=== PATIENT | male | born 1940 | race Caucasian/White ===

== ENCOUNTER 2019-09-08 17:41 | Inpatient (IN) | payer BC ==
[2019-09-08] MEDS ORDERED: Sodium Chloride 0.9% 10 ML Syringe FLUSH PRN (18:07)
[2019-09-08] MEDS ORDERED: Sodium Chloride 0.9% 1,000 ML IV ONE (18:22)
[2019-09-08 18:59] LABS: CHLORIDE,CL 105 mmol/L (98-107); SODIUM,NA 144 mmol/L (136-145)
[2019-09-08 19:06] LABS: ANION GAP 11.4 mmol/L (10-20)
--- NOTE | 2019-09-08 19:10 | CR ---
[id number] RAD/RAD Abd Flat and Upright 2V EXAM: ABDOMEN 4 VIEWS INDICATION: ABDOMINAL PAIN. COMPARISON: None. DISCUSSION: Moderately elevated colonic stool volume. No bowel dilation, free air or pneumatosis is identified. Anterior posterior fusion changes and posterior decompression in the lower lumbar spine. IMPRESSION: 1. Moderately elevated colonic stool volume. Mukesh Roth MD 09/08/19 [id number] Thank you for allowing us to participate in the care of your patient.
--- NOTE | 2019-09-08 19:39 | EDM.PDOC ---
ED HPI GENERAL MEDICAL PROBLEM - General Chief Complaint: General Time Seen by Provider: 09/08/19 17:45 Source of Information: Reports: Patient History Limitations: Reports: No Limitations - History of Present Illness INITIAL COMMENTS - FREE TEXT/NARRATIVE: Pt. presents to ER with complaints of lightheadedness. He was seen in the clinic for the same yesterday, at which time he had a CBC, CMP, and head CT. He states that he talked to a nurse from [facility] who told him to "come to the ER for some IV fluids". Pt. continues to have lightheadedness. No chest pain or shortness of breath. No headache. He states that he feels lightheaded when he goes from sitting to standing. Denies any vertigo/spinning sensation. Pt. denies any nausea, vomiting, or diarrhea. No cough or recent illness. Denies any dysuria or urinary frequency. Onset Date: 09/07/19 Location: Reports: Generalized Associated Symptoms: Reports: Weakness. Denies: Confusion, Chest Pain, Cough, Diaphoresis, Fever/Chills, Malaise, Nausea/Vomiting, Seizure, Shortness of Breath, Syncope - Related Data Allergies Allergy/AdvReac Type Severity Reaction Status Date / Time No Known Drug Allergies Allergy Other Verified 09/08/19 18:12 Home Meds: Home Meds Ascorbic Acid 500 mg PO DAILY 03/06/14 [History] Aspirin [Low Dose Aspirin EC] 81 mg PO DAILY 03/06/14 [History] Celecoxib [CeleBREX] 200 mg PO DAILY 03/06/14 [History] Fish Oil/[place]-3 Fatty Acids [Fish Oil] 1 each PO DAILY 03/06/14 [History] Multivitamin [Multi Vitamin Daily] 1 tab PO DAILY 03/06/14 [History] Rosuvastatin [Crestor] 10 mg PO DAILY 03/06/14 [History] Tiotropium [Spiriva] 18 mcg INH DAILY 03/06/14 [History] lisinopriL [Prinivil] 10 mg PO DAILY 03/06/14 [History] polyethylene glycoL 3350 [MiraLAX] 17 gm PO DAILY 03/06/14 [History] Calcium Carbonate/Vitamin D3 [Calcium Carb 500 MG] 1 each PO BID 09/08/19 [ History] Cholestyramine (With Sugar) [Questran Powder] 4 gm PO BID 09/08/19 [History] Cyclobenzaprine [Flexeril] 10 mg PO BEDTIME 09/08/19 [History] Gabapentin [Neurontin] 600 mg PO BEDTIME 09/08/19 [History] Melatonin 1 mg PO BEDTIME 09/08/19 [History] Tiotropium [place] [Spiriva Respimat] 2 puff IH DAILY 09/08/19 [History] Vitamin B Complex 1 each PO DAILY 09/08/19 [History] hydrALAZINE [Apresoline] 25 mg PO TID 09/08/19 [History] traZODone HCl [Trazodone HCl] 50 mg PO BEDTIME 09/08/19 [History] Past Medical History Cardiovascular History: Reports: High Cholesterol, Hypertension Respiratory History: Reports: COPD Genitourinary History: Reports: Prostate Disorder Other Musculoskeletal History: degenerative disc disease Other Neuro History: insomnia - Past Surgical History Other HEENT Surgeries/Procedures: cochlear implant Social & Family History - Tobacco Use Smoking Status *Q: Current Every Day Smoker Years of Tobacco use: 66 Packs/Tins Daily: 0.5 ED ROS GENERAL - Review of Systems Review Of Systems: See Below Constitutional: Reports: No Symptoms HEENT: Reports: No Symptoms Respiratory: Reports: No Symptoms Cardiovascular: Reports: Lightheadedness. Denies: Chest Pain, Dyspnea on Exertion, Edema Endocrine: Reports: No Symptoms GI/Abdominal: Reports: No Symptoms : Reports: No Symptoms Musculoskeletal: Reports: No Symptoms Skin: Reports: No Symptoms Neurological: Denies: Confusion, Dizziness, Headache, Numbness, Paresthesia Psychiatric: Reports: No Symptoms Hematologic/Lymphatic: Reports: No Symptoms Immunologic: Reports: No Symptoms ED EXAM, GENERAL - Physical Exam Exam: See Below Exam Limited By: No Limitations General Appearance: Alert, WD/WN, No Apparent Distress Eye Exam: Bilateral Eye: EOMI Ears: Normal External Exam, Hearing Grossly Normal Nose: Normal Inspection, Normal Mucosa, No Blood Throat/Mouth: Normal Inspection, Normal Lips, Normal Teeth, Normal Gums, Normal Oropharynx, Normal Voice, No Airway Compromise Head: Atraumatic, Normocephalic Neck: Normal Inspection, Supple, Non-Tender, Full Range of Motion EKG INTERPRETATION Rhythm: NSR [place]: Normal P-Wave: Present QRS: Normal ST-T: Normal QT: Normal Course - Vital Signs Last Recorded V/S: Last Vital Signs Temp 36.4 C 09/08/19 17:41 Pulse 64 09/08/19 17:41 Resp 18 09/08/19 17:41 BP 189/82 H 09/08/19 17:41 Pulse Ox 97 09/08/19 17:41 - Orders/Labs/Meds Orders: Active Orders 24 hr Category Date Time Status Patient Status [ADT] Routine ADT 09/08/19 19:46 Ordered EKG Documentation Completion [RC] STAT Care 09/08/19 18:18 Inactive Chest 1V Frontal [CR] Stat Exams 09/08/19 19:20 Ordered CULTURE BLOOD [BC] Stat Lab 09/08/19 18:57 Results CULTURE BLOOD [BC] Stat Lab 09/08/19 19:03 Received UA W/MICROSCOPIC [URIN] Stat Lab 09/08/19 18:16 Ordered Sodium Chloride 0.9% [Saline Flush] Med 09/08/19 18:07 Active 10 ml FLUSH ASDIRECTED PRN Blood Culture x2 Reflex Set [OM.PC] Stat Oth 09/08/19 18:21 Ordered Peripheral IV Insertion Adult [OM.PC] Routine Oth 09/08/19 18:12 Ordered Medication Orders Sodium Chloride (Saline Flush) 10 ml FLUSH ASDIRECTED PRN PRN Reason: Keep Vein Open Labs: Laboratory Tests 09/08/19 09/08/19 09/08/19 Range/Units 18:30 18:30 18:30 WBC 9.6 (4.0-10.0) x10^3/uL RBC 3.99 L (4.5-6.0) x10^6/uL Hgb 12.2 L D (14.0-18.0) g/dL Hct 36.8 L (40.0-52.0) % MCV 92.2 (78.0-93.0) fL MCH 30.6 (26.0-32.0) pg MCHC 33.2 (32.0-36.0) g/dL RDW Coeff of [place] 12.8 (10.0-15.0) % Plt Count 147 (130-400) x10^3/uL Neut % (Auto) 58.6 (50.0-80.0) % Lymph % (Auto) 26.2 (25.0-50.0) % [place] % (Auto) 9.8 (2.0-11.0) % Eos % (Auto) 5.2 H (0.0-4.0) % Baso % (Auto) 0.2 (0.2-1.2) % PT 10.3 (10.0-12.8) SEC INR 0.9 L (2.0-3.5) Sodium 144 (136-145) mmol/L Potassium 3.4 L (3.5-5.1) mmol/L Chloride 105 (98-107) mmol/L Carbon Dioxide 31 (21-32) mmol/L Anion Gap 11.4 (10-20) mmol/L BUN 40 H (7-18) mg/dL Creatinine 3.3 H* D (0.70-1.30) mg/dL Est Cr Clr Drug Dosing TNP Estimated GFR (MDRD) 18 Glucose 116 H (74-106) mg/dL Lactic Acid (0.4-2.0) mmol/L Calcium 13.4 H* D (8.5-10.1) mg/dL Corrected Calcium 13.88 H* (8.5-10.1) mg/dL Magnesium 2.2 (1.8-2.4) mg/dL Total Bilirubin 0.4 (0.2-1.0) mg/dL AST 15 (15-37) U/L ALT 20 (16-63) U/L Alkaline Phosphatase 96 (46-116) U/L Troponin I < 0.017 (<=0.056) ng/mL Total Protein 7.0 (6.4-8.2) g/dL Albumin 3.4 (3.4-5.0) g/dL Globulin 3.6 Albumin/Globulin Ratio 0.94 // Range/Units 19:03 WBC (4.0-10.0) x10^3/uL RBC (4.5-6.0) x10^6/uL Hgb (14.0-18.0) g/dL Hct (40.0-52.0) % MCV (78.0-93.0) fL MCH (26.0-32.0) pg MCHC (32.0-36.0) g/dL RDW Coeff of [place] (10.0-15.0) % Plt Count (130-400) x10^3/uL Neut % (Auto) (50.0-80.0) % Lymph % (Auto) (25.0-50.0) % [place] % (Auto) (2.0-11.0) % Eos % (Auto) (0.0-4.0) % Baso % (Auto) (0.2-1.2) % PT (10.0-12.8) SEC INR (2.0-3.5) Sodium (136-145) mmol/L Potassium (3.5-5.1) mmol/L Chloride (98-107) mmol/L Carbon Dioxide (21-32) mmol/L Anion Gap (10-20) mmol/L BUN (7-18) mg/dL Creatinine (0.70-1.30) mg/dL Est Cr Clr Drug Dosing Estimated GFR (MDRD) Glucose (74-106) mg/dL Lactic Acid 1.0 (0.4-2.0) mmol/L Calcium (8.5-10.1) mg/dL Corrected Calcium (8.5-10.1) mg/dL Magnesium (1.8-2.4) mg/dL Total Bilirubin (0.2-1.0) mg/dL AST (15-37) U/L ALT (16-63) U/L Alkaline Phosphatase (46-116) U/L Troponin I (<=0.056) ng/mL Total Protein (6.4-8.2) g/dL Albumin (3.4-5.0) g/dL Globulin Albumin/Globulin Ratio Meds: Medications Generic Name Dose Route Start Last Admin Trade Name Freq PRN Reason Stop Dose Admin Sodium Chloride 10 ml 09/08/19 18:07 Saline Flush FLUSH ASDIRECTED PRN Keep Vein Open Discontinued Medications Generic Name Dose Route Start Last Admin Trade Name Freq PRN Reason Stop Dose Admin Sodium Chloride 1,000 mls @ 1,000 mls/hr 09/08/19 18:22 09/08/19 18:51 Normal Saline IV 09/08/19 19:21 1,000 mls/hr .BOLUS ONE Administration Departure - Departure Time of Disposition: 19:50 Disposition: Admitted As Inpatient 65 Clinical Impression: FRAN (acute kidney injury), Dehydration - Discharge Information Referrals: Cade Grider NP [Primary Care Provider] - Forms: ED Department Discharge Sepsis Event Note - Evaluation Sepsis Screening Result: No Definite Risk - Focused Exam Vital Signs: Vital Signs Temp Pulse Resp BP Pulse Ox 09/08/19 17:41 36.4 C 64 18 189/82 H 97 Date Exam was Performed: 09/08/19 Time Exam was Performed: 19:49 - Problem List Review Problem List Initiated/Reviewed/Updated: Yes - My Orders Last 24 Hours: My Active Orders 09/08/19 18:07 Sodium Chloride 0.9% [Saline Flush] 10 ml FLUSH ASDIRECTED PRN 09/08/19 18:12 Peripheral IV Insertion Adult [OM.PC] Routine 09/08/19 18:16 UA W/MICROSCOPIC [URIN] Stat 09/08/19 18:18 EKG Documentation Completion [RC] STAT 09/08/19 18:21 Blood Culture x2 Reflex Set [OM.PC] Stat 09/08/19 18:57 CULTURE BLOOD [BC] Stat 09/08/19 19:03 CULTURE BLOOD [BC] Stat 09/08/19 19:20 Chest 1V Frontal [CR] Stat 09/08/19 19:46 Patient Status [ADT] Routine - Assessment/Plan Last 24 Hours: My Active Orders 09/08/19 18:07 Sodium Chloride 0.9% [Saline Flush] 10 ml FLUSH ASDIRECTED PRN 09/08/19 18:12 Peripheral IV Insertion Adult [OM.PC] Routine 09/08/19 18:16 UA W/MICROSCOPIC [URIN] Stat 09/08/19 18:18 EKG Documentation Completion [RC] STAT 09/08/19 18:21 Blood Culture x2 Reflex Set [OM.PC] Stat 09/08/19 18:57 CULTURE BLOOD [BC] Stat 09/08/19 19:03 CULTURE BLOOD [BC] Stat 09/08/19 19:20 Chest 1V Frontal [CR] Stat 09/08/19 19:46 Patient Status [ADT] Routine Plan: Pt. will be admitted acutely. I spoke with Cade Grider regarding the patient. He is group controller for hospitalist jayesh and will be admitting the patient as well. Continue IV normal saline for now. Awaiting chest x-ray and UA result at this time. All questions were answered.
--- NOTE | 2019-09-08 20:17 | CR ---
[id number] RAD/RAD Chest PA or AP 1V EXAM: FRONTAL CHEST INDICATION: LIGHT HEADEDNESS. COMPARISON: None. DISCUSSION: Linear opacities in the left lung base likely represent subsegmental atelectasis or scarring. 11 mm nodular opacity overlying the peripheral aspect of the left upper lung. No definite acute infiltrates. Borderline heart size without evidence of pulmonary edema. IMPRESSION: 1. Mild left base scarring or atelectasis. 2. Possible small left upper lobe nodule. Chest CT may be useful for further characterization. Mukesh Roth MD 09/08/192016 Thank you for allowing us to participate in the care of your patient.
[2019-09-08] MEDS ORDERED: Acetaminophen 650 MG Tab.ER PO PRN (21:49)
[2019-09-08] MEDS ORDERED: Gabapentin 300 MG Cap PO SCH (22:00)
[2019-09-08] MEDS ORDERED: Sodium Chloride 0.9% 1,000 ML IV SCH (22:00)
[2019-09-08] MEDS ORDERED: traZODone 50 MG Tab PO SCH (22:00)
--- NOTE | 2019-09-08 22:45 | PCM.DCSUM1 ---
Discharge Summary - Hospital Course HPI Initial Comments: Pt. presents to ER with complaints of lightheadedness. He was seen in the clinic for the same yesterday, at which time he had a CBC, CMP, and head CT. He states that he talked to a nurse from [facility] who told him to "come to the ER for some IV fluids". Pt. continues to have lightheadedness. No chest pain or shortness of breath. No headache. He states that he feels lightheaded when he goes from sitting to standing. Denies any vertigo/spinning sensation. Pt. denies any nausea, vomiting, or diarrhea. No cough or recent illness. Denies any dysuria or urinary frequency. Diagnosis: Stroke: No Modified [place] Scale: No Symptoms at All Modified [place] Scale Score: 0 - Discharge Data Discharge Date: 09/08/19 Discharge Disposition: DC/Tfer to Acute Hospital 02 Condition: Good - Referral to Home Health Primary Care Physician: Cade Grider NP - Discharge Diagnosis/Problem(s) (1) Acute renal failure SNOMED Code(s): 25466974 ICD Code: N17.9 - ACUTE KIDNEY FAILURE, UNSPECIFIED Status: Acute Priority: High Current Visit: Yes Qualifiers: Acute renal failure type: unspecified Qualified Code(s): N17.9 - Acute kidney failure, unspecified (2) Hypercalcemia SNOMED Code(s): 25554147 ICD Code: E83.52 - HYPERCALCEMIA Status: Acute Priority: High Current Visit: Yes (3) Dehydration SNOMED Code(s): 47568258 ICD Code: E86.0 - DEHYDRATION Status: Acute Priority: Medium Current Visit: Yes - Patient Summary/Data Consults: Consultations 09/08/19 20:21 OT Evaluation and Treatment [CONS] Routine PT Evaluation and Treatment [CONS] Routine 09/08/19 20:23 Consult to Case Management/Resistor Testing Machine Operator [CONS] Routine Hospital Course: Patient admitted to floor room 201. Resting comfortably. Recommendation made by PCP for patient to be transferred to a higher level of care since the family opted for full code status. Patient did not have any issues for the short duration of this admission. - Discharge Plan *PRESCRIPTION DRUG MONITORING PROGRAM REVIEWED*: Not Applicable *COPY OF PRESCRIPTION DRUG MONITORING REPORT IN PATIENT SOTERO: Not Applicable Home Medications: Home Meds Ascorbic Acid 500 mg PO DAILY 03/06/14 [History] Aspirin [Low Dose Aspirin EC] 81 mg PO DAILY 03/06/14 [History] Celecoxib [CeleBREX] 200 mg PO DAILY 03/06/14 [History] Fish Oil/[place]-3 Fatty Acids [Fish Oil] 1 each PO DAILY 03/06/14 [History] Multivitamin [Multi Vitamin Daily] 1 tab PO DAILY 03/06/14 [History] Rosuvastatin [Crestor] 10 mg PO DAILY 03/06/14 [History] Tiotropium [Spiriva] 18 mcg INH DAILY 03/06/14 [History] lisinopriL [Prinivil] 10 mg PO DAILY 03/06/14 [History] polyethylene glycoL 3350 [MiraLAX] 17 gm PO DAILY 03/06/14 [History] Calcium Carbonate/Vitamin D3 [Calcium Carb 500 MG] 1 each PO BID 09/08/19 [ History] Cholestyramine (With Sugar) [Questran Powder] 4 gm PO BID 09/08/19 [History] Cyclobenzaprine [Flexeril] 10 mg PO BEDTIME 09/08/19 [History] Gabapentin [Neurontin] 600 mg PO BEDTIME 09/08/19 [History] Melatonin 1 mg PO BEDTIME 09/08/19 [History] Tiotropium [place] [Spiriva Respimat] 2 puff IH DAILY 09/08/19 [History] Vitamin B Complex 1 each PO DAILY 09/08/19 [History] hydrALAZINE [Apresoline] 25 mg PO TID 09/08/19 [History] traZODone HCl [Trazodone HCl] 50 mg PO BEDTIME 09/08/19 [History] Oxygen Therapy Mode: Room Air - Discharge Summary/Plan Comment DC Time >30 min.: No Discharge Summary/Plan Comment: Case discussed with Dr. Kit Shaffer, [facility]. Patient accepted in transfer. Patient will be sent to [facility] via [facility]. Patient discharged in stable condition. - General Info Date of Service: 09/08/19 Admission Dx/Problem (Free Text: ARF Hypercalcemia Dehydration AMS Subjective Update: Patient offers no specific complaints at time of this discharge. Functional Status: Reports: Pain Controlled, Tolerating Diet, Ambulating, Urinating. Denies: New Symptoms Numeric/FACES Score: 0 - Review of Systems General: Reports: No Symptoms Pulmonary: Reports: No Symptoms Cardiovascular: Reports: No Symptoms Gastrointestinal: Reports: No Symptoms Neurological: Reports: No Symptoms - Patient Data Vitals - Most Recent: Last Vital Signs Temp 98 F 09/08/19 20:21 Pulse 64 09/08/19 20:21 Resp 18 09/08/19 20:21 BP 150/92 H 09/08/19 20:21 Pulse Ox 96 09/08/19 20:21 Lab Results - Last 24 hrs: Laboratory Results - last 24 hr 09/08/19 09/08/19 09/08/19 Range/Units 18:30 18:30 18:30 WBC 9.6 (4.0-10.0) x10^3/uL RBC 3.99 L (4.5-6.0) x10^6/uL Hgb 12.2 L D (14.0-18.0) g/dL Hct 36.8 L (40.0-52.0) % MCV 92.2 (78.0-93.0) fL MCH 30.6 (26.0-32.0) pg MCHC 33.2 (32.0-36.0) g/dL RDW Coeff of Niur[place] 12.8 (10.0-15.0) % Plt Count 147 (130-400) x10^3/uL Neut % (Auto) 58.6 (50.0-80.0) % Lymph % (Auto) 26.2 (25.0-50.0) % [place] % (Auto) 9.8 (2.0-11.0) % Eos % (Auto) 5.2 H (0.0-4.0) % Baso % (Auto) 0.2 (0.2-1.2) % PT 10.3 (10.0-12.8) SEC INR 0.9 L (2.0-3.5) Sodium 144 (136-145) mmol/L Potassium 3.4 L (3.5-5.1) mmol/L Chloride 105 (98-107) mmol/L Carbon Dioxide 31 (21-32) mmol/L Anion Gap 11.4 (10-20) mmol/L BUN 40 H (7-18) mg/dL Creatinine 3.3 H* D (0.70-1.30) mg/dL Est Cr Clr Drug Dosing TNP Estimated GFR (MDRD) 18 Glucose 116 H (74-106) mg/dL Lactic Acid (0.4-2.0) mmol/L Calcium 13.4 H* D (8.5-10.1) mg/dL Corrected Calcium 13.88 H* (8.5-10.1) mg/dL Magnesium 2.2 (1.8-2.4) mg/dL Total Bilirubin 0.4 (0.2-1.0) mg/dL AST 15 (15-37) U/L ALT 20 (16-63) U/L Alkaline Phosphatase 96 (46-116) U/L Troponin I < 0.017 (<=0.056) ng/mL Total Protein 7.0 (6.4-8.2) g/dL Albumin 3.4 (3.4-5.0) g/dL Globulin 3.6 Albumin/Globulin Ratio 0.94 Urine Color (YELLOW) Urine Appearance (CLEAR) Urine pH (5.0-8.0) Ur Specific [place] Urine Protein (NEGATIVE) mg/dL Urine Glucose (UA) (NEGATIVE) mg/dL Urine Ketones (NEGATIVE) mg/dL Urine Occult Blood (NEGATIVE) Urine Nitrite (NEGATIVE) Urine Bilirubin (NEGATIVE) Urine Urobilinogen (0.2) EU/dL Ur Leukocyte Esterase (NEGATIVE) Urine RBC (NOT SEEN) /HPF Urine WBC (NOT SEEN) /HPF Ur Squamous Epith Cells (NEGATIVE) /HPF Amorphous Sediment Urine Bacteria (NEGATIVE) /HPF Urine Mucus (NEGATIVE) /LPF 09/08/19 09/08/19 Range/Units 19:03 19:35 WBC (4.0-10.0) x10^3/uL RBC (4.5-6.0) x10^6/uL Hgb (14.0-18.0) g/dL Hct (40.0-52.0) % MCV (78.0-93.0) fL MCH (26.0-32.0) pg MCHC (32.0-36.0) g/dL RDW Coeff of [place] (10.0-15.0) % Plt Count (130-400) x10^3/uL Neut % (Auto) (50.0-80.0) % Lymph % (Auto) (25.0-50.0) % [place] % (Auto) (2.0-11.0) % Eos % (Auto) (0.0-4.0) % Baso % (Auto) (0.2-1.2) % PT (10.0-12.8) SEC INR (2.0-3.5) Sodium (136-145) mmol/L Potassium (3.5-5.1) mmol/L Chloride (98-107) mmol/L Carbon Dioxide (21-32) mmol/L Anion Gap (10-20) mmol/L BUN (7-18) mg/dL Creatinine (0.70-1.30) mg/dL Est Cr Clr Drug Dosing Estimated GFR (MDRD) Glucose (74-106) mg/dL Lactic Acid 1.0 (0.4-2.0) mmol/L Calcium (8.5-10.1) mg/dL Corrected Calcium (8.5-10.1) mg/dL Magnesium (1.8-2.4) mg/dL Total Bilirubin (0.2-1.0) mg/dL AST (15-37) U/L ALT (16-63) U/L Alkaline Phosphatase (46-116) U/L Troponin I (<=0.056) ng/mL Total Protein (6.4-8.2) g/dL Albumin (3.4-5.0) g/dL Globulin Albumin/Globulin Ratio Urine Color Yellow (YELLOW) Urine Appearance Cloudy H (CLEAR) Urine pH 7.0 (5.0-8.0) Ur Specific [place] 1.020 Urine Protein Negative (NEGATIVE) mg/dL Urine Glucose (UA) Negative (NEGATIVE) mg/dL Urine Ketones Negative (NEGATIVE) mg/dL Urine Occult Blood Negative (NEGATIVE) Urine Nitrite Negative (NEGATIVE) Urine Bilirubin Negative (NEGATIVE) Urine Urobilinogen 0.2 (0.2) EU/dL Ur Leukocyte Esterase Negative (NEGATIVE) Urine RBC 0-5 (NOT SEEN) /HPF Urine WBC 0-5 (NOT SEEN) /HPF Ur Squamous Epith Cells Rare (NEGATIVE) /HPF Amorphous Sediment Many Urine Bacteria Not seen (NEGATIVE) /HPF Urine Mucus Not seen (NEGATIVE) /LPF ANISA Results - Last 24 hrs: Microbiology 09/08/19 18:57 Anaerobic Blood Culture - Final Blood - Venous Med Orders - Current: Current Medications Acetaminophen (Tylenol Arthritis Pain) 650 mg PO Q8H PRN PRN Reason: Pain/Fever Ascorbic Acid (Vitamin C) 500 mg PO DAILY [facility] Aspirin (Halfprin) 81 mg PO DAILY ANNA Atorvastatin Calcium (Lipitor) 40 mg PO DAILY [facility] Cholestyramine Resin (Prevalite Packet) 4 gm PO BID ANNA Cyclobenzaprine HCl (Flexeril) 10 mg PO BEDTIME ANNA Gabapentin (Neurontin) 600 mg PO BEDTIME [facility] Last Admin: 09/08/19 22:26 Dose: 600 mg Glycopyrrolate (Seebri Neohaler) 15.6 mcg IH BID ANNA Hydralazine HCl (Apresoline) 25 mg PO TID [facility] Sodium Chloride (Normal Saline) 1,000 mls @ 125 mls/hr IV ASDIRECTED [facility] Last Admin: 09/08/19 22:04 Dose: 125 mls/hr Polyethylene Glycol (Miralax) 17 gm PO DAILY [facility] Sodium Chloride (Saline Flush) 10 ml FLUSH ASDIRECTED PRN PRN Reason: Keep Vein Open Last Admin: 09/08/19 20:56 Dose: 10 ml Trazodone HCl (Trazodone) 50 mg PO BEDTIME [facility] Last Admin: 09/08/19 22:27 Dose: 50 mg Discontinued Medications Sodium Chloride (Normal Saline) 1,000 mls @ 1,000 mls/hr IV .BOLUS ONE Stop: 09/08/19 19:21 Last Admin: 09/08/19 18:51 Dose: 1,000 mls/hr - Exam Quality Assessment: Reports: DVT Prophylaxis. Denies: Supplemental Oxygen, Urine Catheter, Skin Breakdown General: Reports: Alert, Cooperative, No Acute Distress Lungs: Reports: Clear to Auscultation, Decreased Breath Sounds Cardiovascular: Reports: Regular Rate, Regular Rhythm, No Murmurs GI/Abdominal Exam: Normal Bowel Sounds, Soft, Non-Tender Neurological: Reports: No New Focal Deficit *Q Meaningful Use (DIS) - VTE *Q VTE Mechanical Contraindications *Q: At Risk for Falls
--- NOTE | 2019-09-08 23:16 | HP ---
CHIEF COMPLAINT: 1. Weakness. 2. Fatigue. 3. Confusion. HISTORY OF PRESENT ILLNESS: This 78-year-old white male presented to the emergency room at [facility] earlier this evening with the above chief complaint. The patient had been seen by me in the clinic yesterday with the same concerns. The patient's assessment was essentially negative at that time. Lab work was drawn and did show acute renal failure and a critically elevated calcium. Test results were discussed with the patient and his , who opted to not be admitted at that time. However, the patient's daughter brought the patient into the emergency room this evening due to the patient's symptoms. Upon arrival into the emergency room, the patient appeared to have memory deficits. Initial lab work showed a low potassium of 3.4, elevated BUN of 40, elevated creatinine of 3.3, and a calcium of 13.88. The patient's baseline creatinine is around 1.2. The patient did have a chest x-ray, which was negative. The patient's EKG was also normal. The patient's urine studies were normal. Upon my interview, the patient appeared to be alert, but somewhat confused. The patient did not have any complaints of pain. The patient denied any chest pain or palpitations. The patient denied any unilateral weakness. The patient denied any visual field disturbances or headaches. The patient denied any recent illnesses. The patient denied any shortness of breath. PAST MEDICAL HISTORY: 1. Mixed hyperlipidemia. 2. Hearing loss of both ears. 3. Hemorrhoids. 4. Essential hypertension. 5. Low back pain. 6. Insomnia. 7. COPD. 8. Herpes zoster. SURGICAL HISTORY: 1. Tonsillectomy and adenoidectomy. 2. Vasectomy. 3. Colonoscopy. 4. Lumbar spine surgery. 5. Lumbar diskectomy. 6. 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 SOCIAL HISTORY: The patient smokes cigarettes on a daily basis. The patient does not consume any alcohol. The patient does not use any illegal drugs. The patient is . ALLERGIES: No known drug allergies. MEDICATIONS: 1. Ascorbic acid 500 mg 1 tablet p.o. daily. 2. Aspirin 81 mg 1 tablet p.o. daily. 3. Calcium carbonate 1 tablet p.o. twice daily. 4. Celebrex 200 mg 1 tablet p.o. daily. 5. Cholestyramine 4 g twice daily with meals. 6. Cyclobenzaprine 10 mg 1 tablet p.o. daily at bedtime. 7. Fish oil/omega 3 one capsule p.o. daily. 8. Gabapentin 300 mg 2 capsules p.o. daily at bedtime. 9. Hydralazine 25 mg 1 tablet p.o. 3 times daily. 10.Lisinopril 10 mg 1 tablet p.o. daily. 11.Multivitamin 1 tablet p.o. daily. 12.Polyethylene glycol 17 g p.o. daily. 13.Rosuvastatin 10 mg 1 tablet p.o. daily. 14.Spiriva Respimat 2.5 mcg/ACT inhaler 2 puffs once daily. 15.Trazodone 50 mg 1 tablet p.o. daily at bedtime. 16.Vitamin B complex 1 tablet p.o. daily. LABORATORY WORK: CBC: White blood cell count 9.6, hemoglobin 12.2, hematocrit 36.8, platelets are 147,000. PT/INR 10.3/0.9. CMP: Sodium is 144, potassium 3.4, chloride 105, CO2 is 31, anion gap is 11.4, BUN is 40, creatinine is 3.3. GFR is 18, glucose 116, calcium is 13.88. Total bilirubin 0.4, AST is 15, ALT is 20, alkaline phosphatase 96, total protein 7.0, albumin 3.4. Lactic acid 1.0. Magnesium 2.2. Troponin less than 0.017. IMAGING STUDIES: 1. Abdominal x-ray revealed moderately elevated colonic stool volume, otherwise negative. 2. Chest x-ray shows mild left base scarring or atelectasis; possible small left upper lobe nodule. REVIEW OF SYSTEMS: General: Negative. Respiratory: Negative. Cardiovascular: Negative. Musculoskeletal: The patient complains of low back pain, which is chronic. Neurological: The patient offers no specific complaints, but states he does feel somewhat confused. Abdomen: Negative. PHYSICAL EXAMINATION: General presentation: The patient is alert, the patient is in no acute distress. Respiratory: Lungs are decreased throughout, but otherwise clear. Cardiovascular: Regular rate and rhythm. No murmur. Abdomen: Soft. Bowel sounds are hypoactive x4. Abdomen is nontender. Neurological: The patient is forgetful with some memory deficit. The patient is alert to self and place, but disoriented to time. Musculoskeletal: Bilateral low back pain on palpation. The patient's gait is somewhat staggered. ASSESSMENT: 1. Altered mental status. 2. Acute renal failure. 3. Severe hypercalcemia. 4. Essential hypertension. 5. Mixed hyperlipidemia. 6. Chronic obstructive pulmonary disease. 7. Insomnia. PLAN: A 78-year-old white male with a past medical history of COPD, hypertension, mixed hyperlipidemia, insomnia, chronic low back pain is admitted to the acute care floor at [facility] for a primary diagnoses of altered mental status, acute renal failure, severe hypercalcemia. We will hold any medications that contain calcium. The patient will be aggressively treated with IV fluids. We will hold the patient's Celebrex due to the acute renal failure. We will also hold the lisinopril and monitor the patient's blood pressure closely. We will consult Physical and Occupational Therapy respectively. We will also consult Case Management. We will continue all other home medications the same. The patient is a full code per his wish and family wishes. If the patient's renal status does not improve over the next day or 2, the patient does agree to be transferred to a higher level of care. DVT prophylaxis with early ambulation. I do anticipate the patient to be admitted for at least 3-4 days. Note: This patient was seen and examined by me as an [facility] provider. TB: 09/08/2019 21:47:56 MODL: 09/08/2019 23:06:39 /[id number]
[2019-09-09] MEDS ORDERED: Polyethylene Glycol 3350 Powder 17 GM Packet PO SCH (08:00)
[2019-09-09] MEDS ORDERED: atorvaSTATin 40 MG Tab PO SCH (08:00)
[2019-09-09] MEDS ORDERED: hydrALAZINE 25 MG Tab PO SCH (08:00)
[2019-09-09] MEDS ORDERED: Aspirin 81 MG Tab.EC PO SCH (08:00)
[2019-09-09] MEDS ORDERED: Cholestyramine/Aspartame Powder 4 GM Packet PO SCH (08:00)
[2019-09-09] MEDS ORDERED: Ascorbic Acid 500 MG Tab PO SCH (08:00)
[2019-09-09] MEDS ORDERED: Glycopyrrolate 15.6 MCG Cap.W.Dev Kit of 6 IH SCH (08:00)
[2019-09-09] MEDS ORDERED: Cyclobenzaprine 10 MG Tab PO SCH (20:00)
== END 2019-09-08 23:35 | disposition short-term general hospital (02) | DRG 469 ==
LOC: VM.ED 17:41 → VM.MS 19:46
PROVIDERS: ADMIT Nurse Practitioner Family; ATTEND Nurse Practitioner Family
DX: N17.9 Acute kidney failure, unspecified (principal); E86.0 Dehydration; H91.93 Unspecified hearing loss, bilateral; F17.210 Nicotine dependence, cigarettes, uncomplicated; I10 Essential (primary) hypertension; G47.00 Insomnia, unspecified; J44.9 Chronic obstructive pulmonary disease, unspecified; E83.52 Hypercalcemia; R41.82 Altered mental status, unspecified; M54.5 Low back pain; G89.29 Other chronic pain; Z90.89 Acquired absence of other organs; Z98.52 Vasectomy status; Z79.82 Long term (current) use of aspirin; Z79.899 Other long term (current) drug therapy
CPT/HCPCS: 36415; 71045; 74019; 80053; 81001; 83605; 83735; 84484; 85025; 85610; 87040; 93005; 96360; 99285-25; A9270-GY; J7030

== ENCOUNTER 2022-10-16 13:43 | Emergency (ER) | payer OTHER, BC, MEDICARE ==
[2022-10-16] MEDS: Ondansetron 4 MG/2 ML SDV IVPUSH ONE (14:10)
[2022-10-16] MEDS: Sodium Chloride 0.9% 1,000 ML IV ONE (14:10)
[2022-10-16 14:35] LABS: CHLORIDE,CL 99 mmol/L (98-107); SODIUM,NA 143 mmol/L (136-145)
[2022-10-16 14:36] LABS: ANION GAP 19.5 mmol/L (5-15); ESTIMATED GFR 50 mL/min (>=60)
== END 2022-10-16 15:38 | disposition home or self-care (01) ==
LOC: VM.ED 13:43
DX: R11.2 Nausea with vomiting, unspecified (principal); R19.7 Diarrhea, unspecified; E78.00 Pure hypercholesterolemia, unspecified; I10 Essential (primary) hypertension; J44.9 Chronic obstructive pulmonary disease, unspecified; Z72.0 Tobacco use
CPT/HCPCS: 36415; 80053; 83605; 85025; 85610; 96361; 96374; 99284; J2405; J7030